=== PATIENT | male | born 2000 | race Caucasian/White ===

== ENCOUNTER 2019-08-03 11:18 | Emergency (ER) | payer SELFPAY | END 2019-08-03 11:37 | disposition home or self-care (01) | LOC: BURERS 11:18 | DX: J06.9 Acute upper respiratory infection, unspecified (principal); F17.220 Nicotine dependence, chewing tobacco, uncomplicated ==

== ENCOUNTER 2021-02-19 22:05 | Emergency (ER) | payer SELFPAY | END 2021-02-19 22:53 | disposition home or self-care (01) | LOC: BURERS 22:05 | DX: Z20.828 Contact with and (suspected) exposure to other viral communicable diseases (principal); F17.220 Nicotine dependence, chewing tobacco, uncomplicated | CPT/HCPCS: 99281 ==